=== PATIENT | male | born 1985 | race African-American/Black ===

== ENCOUNTER 2020-08-19 21:44 | Inpatient (IN) | payer MEDICAID ==
[~2020-08-19] VITALS: Ht 188 cm; Wt 158.8 kg
[2020-08-19] MEDS ORDERED: KETOROLAC 30MG/ML VIAL IV STA (22:14)
[2020-08-19] MEDS ORDERED: SODIUM CHLORIDE 0.9% 1,000 ML IV ONE (22:15)
[2020-08-19] MEDS ORDERED: MORPHINE SULFATE 4 MG/ML CPJ (NOT FOR IM USE) IV STA (23:00)
[2020-08-19] MEDS ORDERED: DIPHENHYDRAMINE 50MG CAPSULE PO ONE (23:00)
[2020-08-19 23:26] LABS: CHLORIDE 104 mEq/L (98-107)
[2020-08-19 23:29] LABS: PROTHROMBIN TIME 10.9 sec (9.6-11.0)
[2020-08-19 23:32] LABS: BASOPHILS % 0.3 % (0.0-2.0); EOSINOPHILS % 0.7 % (0.0-5.0); HEMOGLOBIN. 9.7 g/dL (14.0-18.0); LYMPHOCYTES % 16.1 % (20.0-50.0); MEAN CORPUSCULAR HEMOGLOBIN 26.9 pg (28.0-32.0); MEAN CORPUSCULAR VOLUME 83.6 fL (80.0-94.0); MEAN PLATELET VOLUME 9.9 fl (7.4-10.4); MONOCYTES % 4.2 % (2.0-8.0); NEUTROPHILS % 78.7 % (40.0-76.0); PLATELET 227 x1000/uL (130-400); RED BLOOD CELL COUNT 3.59 mill/uL (4.7-6.1); RED CELL DISTRIBUTION WIDTH 15.6 % (11.6-14.6)
[2020-08-20] MEDS ORDERED: IOHEXOL-350 100 ML BOTTLE ONE (01:41)
[2020-08-20] MEDS ORDERED: ASPIRIN 81MG TABLET PO ONE (02:15)
[2020-08-20] MEDS ORDERED: MORPHINE SULFATE 2 MG/ML CPJ (NOT FOR IM USE) IV PRN (02:45)
[2020-08-20] MEDS ORDERED: HYDROCODONE/ACETAMINOPHEN 10/325MG TABLET PO PRN (09:30)
[2020-08-20] MEDS ORDERED: ONDANSETRON HCL 4MG/2ML INJ IV PRN (09:30)
[2020-08-20] MEDS ORDERED: HYDROMORPHONE HCL/PF 2MG/ML CPJ IV SCH ×2 (09:45→13:00)
[2020-08-20] MEDS: FOLIC ACID 1MG TABLET PO SCH (10:37)
[2020-08-20] MEDS: SODIUM CHLORIDE 0.9% 1,000 ML IV SCH ×2 (10:38→22:57)
[2020-08-20] MEDS ORDERED: FOLI-43 MT (10:51)
[2020-08-20] MEDS ORDERED: HYDR500C18 PO (10:51)
[2020-08-20] MEDS ORDERED: QUET400T PO (10:52)
[2020-08-20] MEDS ORDERED: CARI250T PO (10:53)
[2020-08-20] MEDS ORDERED: MIRT45TA59 MT (10:53)
[2020-08-20] MEDS ORDERED: HYDR-4350 PO (10:54)
[2020-08-20] MEDS ORDERED: INSU100I28 SQ (10:56)
[2020-08-20 11:11] VITALS: BP 138/88
[2020-08-20] MEDS ORDERED: INSLIS SUBCUT (13:59)
[2020-08-20] MEDS ORDERED: VANCOMYCIN 2,000 MG in DEXT 5% WATER 500 ML IV SCH (14:00)
[2020-08-20] MEDS ORDERED: DEXTROSE 50% WATER 50ML SYRINGE IV PRN (14:15)
[2020-08-20] MEDS ORDERED: NALOXONE HCL 0.4 MG/ML 1ML VIAL IV PRN (15:45)
[2020-08-20] MEDS ORDERED: HYDROMORPHONE HCL/PF 2MG/ML CPJ IM PRN (15:45)
[2020-08-20] MEDS: HYDROMORPHONE HCL/PF 2MG/ML CPJ IV PRN ×4 (16:15→22:54)
[2020-08-20 16:18] VITALS: BP 131/77
[2020-08-20] MEDS: INSULIN LISPRO 100 UNITS/ML SUBCUT SCH ×3 (17:19→22:59)
[2020-08-20] MEDS: BLOOD SUGAR DIAGNOSTIC STRIP TEST SCH ×3 (17:19→20:43)
[2020-08-20] MEDS: OMEPRAZOLE 20MG CAPSULE EXTENDED RELEASE PO SCH (18:45)
[2020-08-20 20:00] VITALS: BP 166/98
[2020-08-20 21:02] LABS: *AMPHETAMINES SCREEN URINE NEGATIVE (NEGATIVE); *BARBITURATES SCREEN URINE NEGATIVE (NEGATIVE); *BENZODIAZEPINES SCREEN URINE NEGATIVE (NEGATIVE); *COCAINE SCREEN URINE NEGATIVE (NEGATIVE); METHADONE URINE SCREEN NEGATIVE (NEGATIVE)
[2020-08-20 21:03] LABS: CANNABINOID URINE SCREEN NEGATIVE (NEGATIVE); OPIATES URINE SCREEN PRESUMTIVE POSITIVE (NEGATIVE); PHENCYCLIDINE URINE SCREEN NEGATIVE (NEGATIVE)
[2020-08-20] MEDS ORDERED: CARISOPRODOL 350 MG PO SCH (22:00)
[2020-08-20] MEDS ORDERED: MEDICATION NOT ON FORMULARY EA (Quetiapine Fumarate (Seroquel) 400 MG) PO SCH (22:00)
[2020-08-20] MEDS ORDERED: INSULIN GLARGINE UD 100 UNITS/ML SYR SUBCUT SCH (22:00)
[2020-08-20] MEDS ORDERED: DIPHENHYDRAMINE 50MG CAPSULE PO PRN (22:00)
[2020-08-20] MEDS ORDERED: MIRTAZAPINE 30MG TABLET PO SCH (22:30)
[2020-08-20] MEDS ORDERED: MIRTAZAPINE 15MG TABLET PO SCH ×2 (22:36→22:50)
[2020-08-20] MEDS: VANCOMYCIN 1500MG in DEXTROSE 5% WATER 250ML IV SCH (22:56)
[2020-08-20] MEDS: CARISOPRODOL 350 MG TABLET PO SCH (22:57)
[2020-08-20] MEDS: QUETIAPINE FUMARATE 50MG TABLET PO SCH (22:58)
[2020-08-20] MEDS: INSULIN GLARGINE UD 100 UNITS/ML SYR SUBCUT SCH (22:59)
[2020-08-21] VITALS: BP 124/77
[2020-08-21] MEDS: HYDROXYUREA 500MG CAPSULE PO SCH ×3 (00:10→12:01)
[2020-08-21] MEDS: HYDROMORPHONE HCL/PF 2MG/ML CPJ IV PRN ×5 (00:56→11:01)
[2020-08-21 04:00] VITALS: BP 132/71
[2020-08-21] MEDS: VANCOMYCIN 1500MG in DEXTROSE 5% WATER 250ML IV SCH (06:42)
[2020-08-21] MEDS: OMEPRAZOLE 20MG CAPSULE EXTENDED RELEASE PO SCH (06:42)
[2020-08-21] MEDS: BLOOD SUGAR DIAGNOSTIC STRIP TEST SCH ×2 (06:42→12:31)
[2020-08-21 08:00] VITALS: BP 127/74
[2020-08-21] MEDS: CARISOPRODOL 350 MG TABLET PO SCH ×2 (08:26→12:01)
[2020-08-21] MEDS: QUETIAPINE FUMARATE 50MG TABLET PO SCH (08:26)
[2020-08-21] MEDS: INSULIN LISPRO 100 UNITS/ML SUBCUT SCH ×2 (08:30→11:20)
[2020-08-21] MEDS: FOLIC ACID 1MG TABLET PO SCH (08:43)
[2020-08-21 09:08] LABS: BASOPHILS % 0.2 % (0.0-2.0); EOSINOPHILS % 3.3 % (0.0-5.0); HEMATOCRIT. 27.9 % (42.0-52.0); HEMOGLOBIN. 8.8 g/dL (14.0-18.0); LYMPHOCYTES % 29.7 % (20.0-50.0); MEAN CORPUSCULAR HEMOGLOBIN 26.9 pg (28.0-32.0); MEAN CORPUSCULAR VOLUME 85.2 fL (80.0-94.0); MEAN PLATELET VOLUME 10.1 fl (7.4-10.4); MONOCYTES % 7.9 % (2.0-8.0); NEUTROPHILS % 58.9 % (40.0-76.0); PLATELET 211 x1000/uL (130-400); RED BLOOD CELL COUNT 3.27 mill/uL (4.7-6.1); RED CELL DISTRIBUTION WIDTH 15.9 % (11.6-14.6)
[2020-08-21 09:13] LABS: CHLORIDE 106 mEq/L (98-107)
[2020-08-21] MEDS: INSULIN GLARGINE UD 100 UNITS/ML SYR SUBCUT SCH (11:19)
[2020-08-21 11:44] VITALS: BP 127/74
[2020-08-21 12:00] VITALS: BP 130/72
[2020-08-21] MEDS: SODIUM CHLORIDE 0.9% 1,000 ML IV SCH (12:10)
[2020-08-21] MEDS ORDERED: MIRTAZAPINE 45 MG PO SCH (21:00)
[2020-08-26 09:06] LABS: HGB A2 4.1 % (1.8-3.2); HGB F 2.9 % (0.0-2.0)
== END 2020-08-21 12:47 | disposition home or self-care (01) | DRG 662 ==
LOC: ER 21:44 → 6WST 08-20 02:12 → EDBEDREQTM 08-20 02:18 → EDBEDREQDT 08-20 02:18 → EDBEDREQ 08-20 02:18 → ENRESERV 08-20 07:56
PROVIDERS: ADMIT Internal Medicine; ATTEND Internal Medicine
DX: D57.00 Hb-SS disease with crisis, unspecified (principal); D57.01 Hb-SS disease with acute chest syndrome; E44.1 Mild protein-calorie malnutrition; E66.9 Obesity, unspecified; I25.10 Atherosclerotic heart disease of native coronary artery without angina pectoris; Z86.73 Personal history of transient ischemic attack (TIA), and cerebral infarction without residual deficits; Z90.49 Acquired absence of other specified parts of digestive tract; Z95.5 Presence of coronary angioplasty implant and graft; Z86.711 Personal history of pulmonary embolism; Z96.649 Presence of unspecified artificial hip joint; Z68.41 Body mass index [BMI] 40.0-44.9, adult; Z88.5 Allergy status to narcotic agent; E11.65 Type 2 diabetes mellitus with hyperglycemia
CPT/HCPCS: 36415; 71045; 71275; 80048; 80053; 80305; 82962; 83021; 83036; 84484; 85025; 85044; 85660; 93005; 99291; J1170; J1815; J2270; J3370; J7030; J7060; Q0163; Q9967